=== PATIENT | female | born 1965 | race American Indian/Alaskan Native ===

== ENCOUNTER 2017-06-13 10:48 | Outpatient (CLI) | payer BC ==
--- NOTE | 2017-06-14 09:54 | Mammography Report ---
Bilateral mammogram: Previous study was performed on 08/15/09 and not available for review. CAD study utilized. Findings: Bilateral stable breast implants. Displaced views there is no definite mass or microcalcification. Predominance adipose tissue. Impression: Stable breast implants. Unremarkable adjacent breast parenchyma. Annual followup recommended. COMMENT: Patient follow-up letters are generated in [employer]. BI-RADS CATEGORY: 2 = Benign ACR BI-RADS MAMMOGRAPHIC CODES: 0 = Needs additional imaging evaluation; 1 = Negative; 2 = Benign; 3 = Probably benign; 4 = Suspicious; 5 = Malignant; 6 = Known biopsy-proven malignancy COMMENT: 1. Dense breast tissue, i.e., adenosis, fibrocystic changes, etc., may obscure an underlying neoplasm. 2. Approximately 10% of cancers are not detected with mammography. 3. A negative mammography report should not delay biopsy if a clinically suspicious mass is present.
== END 2017-06-13 10:49 | disposition home or self-care (01) ==
LOC: MAMMO 10:48
PROVIDERS: ATTEND Nurse Practitioner Family
DX: Z12.31 Encounter for screening mammogram for malignant neoplasm of breast (principal); Z98.82 Breast implant status
CPT/HCPCS: 77067; G0202